=== PATIENT | female | born 1965 | race Caucasian/White ===

== ENCOUNTER 2018-06-21 11:08 | Outpatient (RCR) | payer SELFPAY | END 2018-06-25 | disposition home or self-care (01) | LOC: WCC 11:08 | DX: T81.32XD Disruption of internal operation (surgical) wound, not elsewhere classified, subsequent encounter (principal); Z41.1 Encounter for cosmetic surgery | CPT/HCPCS: G0277 ×2 ==

== ENCOUNTER 2018-06-27 13:12 | Outpatient (RCR) | payer SELFPAY | END 2018-07-26 | disposition home or self-care (01) | LOC: WCC 13:12 | DX: T81.32XD Disruption of internal operation (surgical) wound, not elsewhere classified, subsequent encounter (principal); Z41.1 Encounter for cosmetic surgery | CPT/HCPCS: G0277 ×3 ==